=== PATIENT | male | born 1970 | race Caucasian/White ===

== ENCOUNTER 2016-10-17 10:14 | Emergency (ER) | payer BC ==
[~2016-10-17] VITALS: Ht 172.7 cm; Wt 87.0 kg
[~2016-10-17 10:14] MED LIST: ADVIN25/60 INH; ALBUAER19 INH; CALC600T14 PO; ERGO1CAP41 PO; OMEP10CA2 PO
[2016-10-17 10:28] VITALS: TEMP 37.1; Ht 172.7 cm; Wt 87.0 kg
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
[2016-10-17 11:13] VITALS: O2SAT 99
[2016-10-17 11:53] VITALS: BP 140/81; PULSE 67; O2SAT 99
[2017-03-10] MEDS ORDERED: ALBU18002 INH (08:56)
== END 2016-10-17 11:55 | disposition home or self-care (01) ==
LOC: C.EDB 10:15
DX: T58.2X1A Toxic effect of carbon monoxide from incomplete combustion of other domestic fuels, accidental (unintentional), initial encounter (principal); X58.XXXA Exposure to other specified factors, initial encounter; Y92.019 Unspecified place in single-family (private) house as the place of occurrence of the external cause; J45.909 Unspecified asthma, uncomplicated

== ENCOUNTER → 2017-03-18 | Day surgery (SDC) | payer BC ==
[2017-03-10 08:56] VITALS: BMI 26.0
[~2017-03-18] VITALS: Ht 175.3 cm; Wt 81.8 kg
[~2017-03-18] MED LIST changes: +ALBU18002 INH; -ALBUAER19 INH; -CALC600T14 PO; -ERGO1CAP41 PO; +LIDOCAINE HCL 2% 2 ML VIAL (20MG/ML) ONE; -OMEP10CA2 PO; +PROPOFOL IV EMULSION 10 MG/ML 20 ML VIAL IV ONE
[2017-03-18 11:07] VITALS: Ht 175.3 cm; Wt 81.8 kg
--- NOTE | 2017-03-18 11:15 | Endo History and Physical ---
History & Physical Date of Service: Mar 18, 2017. Chief Complaint: hx celiac disease Referring Physician: Dr. Elam History of Present Illness 46 yo CM who presents for EGD and colonoscopy secondary to Celiac disease. Past Surgical History Hx Cardiac Surgery: No Hx Internal Defibrillator: No Hx Pacemaker: No Hx Abdominal Surgery: No Hx of Implantable Prosthesis: No Hx Post-Op Nausea and Vomiting: No Hx Cancer Surgery: No Hx Thoracic Surgery: No Hx Orthopedic: No Hx Urinary Tract Surgery: No Family History Colon CA Social History Smoking Status: Never Smoker Hx Substance Use: No Hx Alcohol Use: No Allergies Coded Allergies: Cat Dander (Verified Allergy, Unknown, ITCHING EYES, SCRATCHING, 03/18/17) No Known Drug Allergy (Verified Allergy, Unknown, none, 03/18/17) Uncoded Allergies: RATS (Allergy, Unknown, BREATHING DIFFICULTIES, 03/10/17) Current Medications Reported Home Medications Medications Dose Route/Sig Max Daily Dose Days Date Category Proair Respiclick (Albuterol Sulfate) 108 Mcg/Act Aer 2 [place] INH Q4H PRN 03/10/17 Reported Advair Diskus 250/50 60 Dose (Fluticasone Prop/Salmeterol) 1 Ea Aerp 1 Puff INH BID 12/01/11 Reported Vital Signs Weight (Kilograms): 81.82 Height (Feet): 5 Height (Inches): 9 Date Time Temp Pulse Resp B/P (MAP) Pulse Ox O2 Delivery O2 Flow Rate FiO2 03/18/17 11:12 36.4 61 18 121/70 (87) 97 Room Air Physical Exam General Appearance: WD/WN, no apparent distress Respiratory/Chest: Auscultation: breath sounds normal Cardiovascular: Heart Auscultation: RRR Abdomen: Bowel Sounds: normal Inspection & Palpation: soft, non-distended, no tenderness, guarding & rebound Assessment and Plan Assessment: 46 yo CM who presents for EGD and colonoscopy secondary to Celiac disease. Plan: Proceed with EGD and colonoscopy.
--- NOTE | 2017-03-18 12:25 | Discharge Instructions ---
Endoscopy Patient Instructions Date / Procedure(s) Performed Mar 18, 2017. Colonoscopy, EGD Allergy Information Coded Allergies: Cat Dander (Verified Allergy, Unknown, ITCHING EYES, SCRATCHING, 03/18/17) No Known Drug Allergy (Verified Allergy, Unknown, none, 03/18/17) Uncoded Allergies: RATS (Allergy, Unknown, BREATHING DIFFICULTIES, 03/10/17) Discharge Date / Findings Mar 18, 2017. EGD: [place] to evaluate for Lynette esophagitis Colonoscopy: Normal colonoscopy Medication Instructions OK to resume all medications today as prescribed Reported Home Medications Medications Dose Route/Sig Max Daily Dose Days Date Category Proair Respiclick (Albuterol Sulfate) 108 Mcg/Act Aer 2 [place] INH Q4H PRN 03/10/17 Reported Advair Diskus 250/50 60 Dose (Fluticasone Prop/Salmeterol) 1 Ea Aerp 1 Puff INH BID 12/01/11 Reported Provider Instructions Activity Restrictions - No exercising or heavy lifting for 24 hours. - Do not drink alcohol the day of the procedure. - Do not drive a car or operate machinery until the day after the procedure. - Do not make any important decisions or sign important papers in 24 hours after the procedure. Following Day: - Return to full activity which may include returning to work/school. Diet Start your diet with liquids and light foods (jello, soup, juice, toast). Then eat your usual diet if not nauseated. Treatment For Common After Affects For mild abdominal pain, bloating, or excessive gas: - Rest - Eat lightly - Lie on right side Follow-Up Information Follow-up with Dr. Elam as scheduled Anesthesia Information What You Should Know You have had a procedure that required some medicine to reduce anxiety and discomfort. This treatment is called moderate sedation. After receiving the treatment, you may be sleepy, but you will be able to breathe on your own. The effects of the treatment may last for several hours. Follow these instructions along with Activity/Diet recommendations noted above: * Do NOT do anything where dizziness or clumsiness would be dangerous. * Rest quietly at home today, then you can be up and about tomorrow. * Have a responsible person stay with you the rest of today. * You may have had an I.V. today. If so, you may take the dressing off later today. Recommendations Call your doctor if: * Trouble breathing * Continuous vomiting for more than 24 hours * Temperature above 101 degrees * Severe abdominal pain or bloating * Pain not relieved by pain medicine ordered * There is increased drainage or redness from any incision * A large amount of rectal bleeding greater than 2-3 tablespoons. (If you had a polyp/s removed or have hemorrhoids, a small amount of blood - from the rectum is to be expected.) * You have any unanswered questions or concerns. IN THE EVENT OF A SERIOUS EMERGENCY, GO TO THE NEAREST EMERGENCY ROOM Your discharge instructions were prepared by provider Etienne Joyce. Patient Instructions Signature Page Sebastian Worthy Patient (or Guardian) Signature/Date: I have read and understand the instructions given to me by my caregivers. Caregiver/RN/Doctor Signature/Date: The above-named patient and/or guardian has received patient instructions on this date. + Original Patient Signature Page (only) stays with chart. Please make copy for patient.
--- NOTE | 2017-03-18 12:30 | Anesthesiology Progress Note ---
Anesthesia Post Op Note Date & Time Mar 18, 2017 at 12:30 Vital Signs Pain Intensity: 0 Vital Signs Past 12 Hours Date Time Temp Pulse Resp B/P (MAP) Pulse Ox O2 Delivery O2 Flow Rate FiO2 03/18/17 11:12 36.4 61 18 121/70 (87) 97 Room Air Notes Mental Status: alert / awake / arousable, participated in evaluation Pt Amnestic to Procedure: Yes Nausea / Vomiting: adequately controlled Pain: adequately controlled Airway Patency, RR, SpO2: stable & adequate BP & HR: stable & adequate Hydration State: stable & adequate Anesthetic Complications: no major complications apparent
--- NOTE | 2017-03-18 12:35 | GI REPORT ---
Procedure Date: 03/18/2017 11:17 AM Procedure: Colonoscopy Indications: Celiac disease Medicines: Monitored Anesthesia Care Complications: No immediate complications. Estimated Blood Loss: Estimated blood loss: none. Procedure: Pre-Anesthesia Assessment: - Prior to the procedure, a History and Physical was performed, and patient medications and allergies were reviewed. The patient's tolerance of previous anesthesia was also reviewed. The risks and benefits of the procedure and the sedation options and risks were discussed with the patient. All questions were answered, and informed consent was obtained. Prior Anticoagulants: The patient has taken no previous anticoagulant or antiplatelet agents. ASA Grade Assessment: II - A patient with mild systemic disease. After reviewing the risks and benefits, the patient was deemed in satisfactory condition to undergo the procedure. After I obtained informed consent, the scope was passed under direct vision. Throughout the procedure, the patient's blood pressure, pulse, and oxygen saturations were monitored continuously. The scope was introduced through the anus and advanced to the terminal ileum. The colonoscopy was performed without difficulty. The patient tolerated the procedure well. The quality of the bowel preparation was good. The terminal ileum, ileocecal valve, appendiceal orifice, and rectum were photographed. Findings: The colon (entire examined portion) appeared normal. Impression: - The entire examined colon is normal. - No specimens collected. Recommendation: - Resume previous diet. - Continue present medications. - Repeat colonoscopy in 10 years for surveillance. - Return to primary care physician as previously scheduled. Etienne Joyce DO 03/18/2017 12:34:59 PM This report has been signed electronically. Note Initiated On: 03/18/2017 11:17 AM I attest to the content of the Intraoperative Record and orders documented therein, exceptions below
--- NOTE | 2017-03-18 12:37 | GI REPORT ---
Procedure Date: 03/18/2017 11:17 AM Procedure: Upper GI endoscopy Indications: Follow-up of celiac disease Medicines: Monitored Anesthesia Care Complications: No immediate complications. Estimated Blood Loss: Estimated blood loss: none. Procedure: Pre-Anesthesia Assessment: - Prior to the procedure, a History and Physical was performed, and patient medications and allergies were reviewed. The patient's tolerance of previous anesthesia was also reviewed. The risks and benefits of the procedure and the sedation options and risks were discussed with the patient. All questions were answered, and informed consent was obtained. Prior Anticoagulants: The patient has taken no previous anticoagulant or antiplatelet agents. ASA Grade Assessment: II - A patient with mild systemic disease. After reviewing the risks and benefits, the patient was deemed in satisfactory condition to undergo the procedure. After obtaining informed consent, the endoscope was passed under direct vision. Throughout the procedure, the patient's blood pressure, pulse, and oxygen saturations were monitored continuously. The scope was introduced through the mouth, and advanced to the second part of duodenum. The upper GI endoscopy was accomplished without difficulty. The patient tolerated the procedure well. Findings: Multiple 3 mm plaques were found in the lower third of the esophagus. Cells for cytology were obtained by brushing. The stomach was normal. The examined duodenum was normal. Impression: - Multiple plaques in the lower third of the esophagus. Cells for cytology obtained. - Normal stomach. - Normal examined duodenum. Recommendation: - Resume previous diet. - Continue present medications. - Return to GI office as previously scheduled. Etienne Joyce DO 03/18/2017 12:36:42 PM This report has been signed electronically. Note Initiated On: 03/18/2017 11:17 AM I attest to the content of the Intraoperative Record and orders documented therein, exceptions below
[2017-03-18 12:59] VITALS: BP 124/73; PULSE 56; O2SAT 98
== END | disposition home or self-care (01) ==
LOC: C.GI 10:43
PROVIDERS: ATTEND Internal Medicine
DX: K90.0 Celiac disease (principal); Z80.0 Family history of malignant neoplasm of digestive organs; J45.909 Unspecified asthma, uncomplicated; D18.03 Hemangioma of intra-abdominal structures; M19.90 Unspecified osteoarthritis, unspecified site